=== PATIENT | male | born 1990 | race Caucasian/White ===

== ENCOUNTER 2017-05-09 06:23 | Emergency (ER) | payer OTHER ==
[~2017-05-09] VITALS: Ht 172.7 cm; Wt 87.1 kg
[~2017-05-09 06:23] MED LIST: ANAPROX DS550 MG PO; BACTRIM DS 8001 TA1 PO; BIAXIN500 MG PO; CLARITIN10 MG PO; CORTISPORIN 1%7.5 ML OP; DOXYCYCLINE HY100 M1 PO; EES400 MG PO; HYDROCODONE BIT1 T11 PO; MOTRIN600 MG PO; MOTRIN800 MG PO; NKHM; NORCO 5-325 TA1 EACH PO; TRAMADOL HCL50 MG PO; VIBRAMYCIN100 MG PO; ZITHROMAX Z PA250 MG PO; ZITHROMAX250 MG PO; ZYRTEC10 M2 PO
[2017-05-09] MEDS ORDERED: PROZAC20 MG PO (06:35)
[2017-05-09] MEDS ORDERED: PREDNISONE50 MG PO (07:57)
== END 2017-05-09 07:58 | disposition home or self-care (01) ==
LOC: ED 06:23
DX: J40 Bronchitis, not specified as acute or chronic (principal); Z88.0 Allergy status to penicillin; Z88.1 Allergy status to other antibiotic agents; Z79.899 Other long term (current) drug therapy

== ENCOUNTER 2017-10-26 09:45 | Emergency (ER) | payer OTHER ==
[~2017-10-26] VITALS: Ht 172.7 cm; Wt 92.1 kg
[~2017-10-26 09:45] MED LIST changes: +PREDNISONE50 MG PO; +PROZAC20 MG PO
[2017-10-26] MEDS ORDERED: NAPROSYN500 MG PO (09:51)
== END 2017-10-26 10:58 | disposition home or self-care (01) ==
LOC: ED 09:45
DX: S80.11XA Contusion of right lower leg, initial encounter (principal); R03.0 Elevated blood-pressure reading, without diagnosis of hypertension; Z88.0 Allergy status to penicillin; Z88.1 Allergy status to other antibiotic agents; Z79.899 Other long term (current) drug therapy; W21.00XA Struck by hit or thrown ball, unspecified type, initial encounter; Y93.89 Activity, other specified; Y92.89 Other specified places as the place of occurrence of the external cause; Y99.8 Other external cause status

== ENCOUNTER → 2018-09-13 | Outpatient (CLI) | payer OTHER ==
[~2018-09-13] MED LIST changes: +NAPROSYN500 MG PO
== END | disposition home or self-care (01) ==
LOC: RAD 12:08
DX: R07.9 Chest pain, unspecified (principal)

== ENCOUNTER → 2020-04-12 | Outpatient (CLI) | payer OTHER | END | disposition home or self-care (01) | LOC: COVID19 09:18 | PROVIDERS: ATTEND Family Medicine | DX: Z20.828 Contact with and (suspected) exposure to other viral communicable diseases (principal) ==

== ENCOUNTER 2020-09-05 05:18 | Emergency (ER) | payer OTHER ==
[~2020-09-05] VITALS: Ht 170.1 cm; Wt 90.7 kg
[2020-09-05] MEDS ORDERED: Bactroban Oint22 GM T (05:42)
[2020-09-05] MEDS ORDERED: CLINDAMYCIN HC300 MG PO (05:42)
== END 2020-09-05 05:56 | disposition home or self-care (01) ==
LOC: ED 05:18
DX: S91.311A Laceration without foreign body, right foot, initial encounter (principal); S91.301A Unspecified open wound, right foot, initial encounter; Z88.0 Allergy status to penicillin; Z88.8 Allergy status to other drugs, medicaments and biological substances; Z79.899 Other long term (current) drug therapy; X58.XXXA Exposure to other specified factors, initial encounter; Y93.89 Activity, other specified; Y92.89 Other specified places as the place of occurrence of the external cause; Y99.8 Other external cause status

== ENCOUNTER → 2021-09-10 | Outpatient (CLI) | payer OTHER ==
[~2021-09-10] MED LIST changes: +Bactroban Oint22 GM T; +CLINDAMYCIN HC300 MG PO
[2021-09-10 11:36] LABS: HEMATOCRIT 48.2 % (42.0-52.0); MEAN CELL VOLUME 86.1 fl (80.0-94.0); MEAN CORPUSCULAR HGB 28.9 pg (27.0-31.0); MEAN CORPUSCULAR HGB CONC 33.6 g/dl (33.0-37.0); RED BLOOD COUNT 5.6 10*6/uL (4.50-5.90); RED CELL DISTRI WIDTH 12.8 % (0-14.5); WHITE BLOOD COUNT 9.9 10*3/uL (4.8-10.8)
[2021-09-10 12:04] LABS: ALKALINE PHOSPHATASE 96 U/L (45-117); BUN 13 mg/dl (7-24); CHLORIDE 109 mmol/L (98-107); CHOLESTEROL 176 mg/dL (<200); CREATININE 0.92 mg/dL (0.70-1.30); LDL CHOLESTEROL 88 mg/dL (9-159); SGOT/AST 27 IU/L (3-35); SGPT/ALT 56 U/L (12-78); SODIUM 142 mmol/L (136-145); TOTAL PROTEIN 7.4 gm/dL (6.4-8.2); TRIGLYCERIDES 235 mg/dl (<150)
== END | disposition home or self-care (01) ==
LOC: LAB 10:50
PROVIDERS: ATTEND Family Medicine
DX: Z00.00 Encounter for general adult medical examination without abnormal findings (principal); F43.9 Reaction to severe stress, unspecified; F41.9 Anxiety disorder, unspecified

== ENCOUNTER 2022-06-07 17:41 | Emergency (ER) | payer OTHER ==
[~2022-06-07] VITALS: Ht 172.7 cm; Wt 90.7 kg
[2022-06-07 18:11] LABS: BASO # 0.1 10*3/uL (0.0-0.1); BASO % 0.5 % (0.0-1.0); EOS # 0.3 10*3/uL (0.0-0.4); EOS % 1.8 % (1.0-4.0); HEMATOCRIT 47.9 % (42.0-52.0); LYMPH # 1.5 10*3/uL (1.3-4.4); LYMPH % 9.5 % (27.0-41.0); MEAN CELL VOLUME 84.2 fl (80.0-94.0); MEAN CORPUSCULAR HGB 29.2 pg (27.0-31.0); MEAN CORPUSCULAR HGB CONC 34.7 g/dl (33.0-37.0); MEAN PLATELET VOLUME 9.7 fl (9.6-12.3); MONO # 1.4 10*3/uL (0.1-1.0); MONO % 8.8 % (3.0-9.0); NEUT # 12.3 10*3/uL (2.3-7.9); NEUT % 78.9 % (47.0-73.0); PLATELET COUNT AUTOMATED 300 10*3/uL (130-400); RED BLOOD COUNT 5.69 10*6/uL (4.50-5.90); RED CELL DISTRI WIDTH 12.5 % (0-14.5); WHITE BLOOD COUNT 15.6 10*3/uL (4.8-10.8)
[2022-06-07 18:28] LABS: ALKALINE PHOSPHATASE 100 U/L (46-116); BUN 10 mg/dl (9-23); CHLORIDE 102 mmol/L (98-107); SGPT/ALT 22 U/L (10-49); TOTAL PROTEIN 7.5 gm/dL (6.0-8.0)
[2022-06-07] MEDS ORDERED: LEVOFLOXACIN500 MG PO (20:42)
[2022-06-07] MEDS ORDERED: LEVOFLOXACIN750 M2 PO (20:44)
== END 2022-06-07 21:10 | disposition home or self-care (01) ==
LOC: ED 17:41
PROVIDERS: Nurse Practitioner Family
DX: J18.9 Pneumonia, unspecified organism (principal); I10 Essential (primary) hypertension; Z20.822 Contact with and (suspected) exposure to COVID-19; Z88.0 Allergy status to penicillin; Z88.8 Allergy status to other drugs, medicaments and biological substances; Z98.890 Other specified postprocedural states

== ENCOUNTER → 2022-06-19 | Outpatient (CLI) | payer OTHER ==
[~2022-06-19] MED LIST changes: +LEVOFLOXACIN500 MG PO; +LEVOFLOXACIN750 M2 PO
[2022-06-19 10:47] LABS: HEMATOCRIT 49.6 % (42.0-52.0); MEAN CELL VOLUME 85.8 fl (80.0-94.0); MEAN CORPUSCULAR HGB 28.9 pg (27.0-31.0); MEAN CORPUSCULAR HGB CONC 33.7 g/dl (33.0-37.0); MEAN PLATELET VOLUME 9.5 fl (9.6-12.3); RED BLOOD COUNT 5.78 10*6/uL (4.50-5.90); RED CELL DISTRI WIDTH 12.4 % (0-14.5); WHITE BLOOD COUNT 10.7 10*3/uL (4.8-10.8)
[2022-06-19 11:06] LABS: ALKALINE PHOSPHATASE 93 U/L (46-116); BUN 10 mg/dl (9-23); CHLORIDE 103 mmol/L (98-107); SGPT/ALT 34 U/L (10-49); TOTAL PROTEIN 7.8 gm/dL (6.0-8.0)
== END | disposition home or self-care (01) ==
LOC: LAB 10:11
PROVIDERS: ATTEND Family Medicine
DX: I10 Essential (primary) hypertension (principal); D72.829 Elevated white blood cell count, unspecified; R53.83 Other fatigue; R05.9 Cough, unspecified; J18.9 Pneumonia, unspecified organism

== ENCOUNTER 2023-06-07 15:15 | Emergency (ER) | payer OTHER ==
[~2023-06-07] VITALS: Ht 175.2 cm; Wt 90.7 kg
[2023-06-07] MEDS ORDERED: Tdap Vaccine 0.5 ML SYR (Adult Vaccine) IM ONE (15:35)
[2023-06-07] MEDS ORDERED: ceFAZolin sodium 1 GM VIAL IM ONE (15:50)
[2023-06-07] MEDS ORDERED: Vancomycin Hydrochloride 250 ML IV ONE (16:10)
[2023-06-07] MEDS ORDERED: MORPHINE Sulfate 2 MG/ML SYR IV ONE (16:25)
== END 2023-06-07 17:49 | disposition short-term general hospital (02) ==
LOC: ED 15:15
DX: S68.124A Partial traumatic metacarpophalangeal amputation of right ring finger, initial encounter (principal); I10 Essential (primary) hypertension; Z88.0 Allergy status to penicillin; Z88.8 Allergy status to other drugs, medicaments and biological substances; Z98.890 Other specified postprocedural states; X58.XXXA Exposure to other specified factors, initial encounter; Y93.89 Activity, other specified; Y92.89 Other specified places as the place of occurrence of the external cause; Y99.0 Civilian activity done for income or pay

== ENCOUNTER → 2023-08-08 | Outpatient (CLI) | payer OTHER ==
[2023-08-08 09:52] LABS: BASO % 0.5 % (0.0-1.0); EOS # 0.2 10*3/uL (0.0-0.4); HEMATOCRIT 45.1 % (42.0-52.0); LYMPH # 2.5 10*3/uL (1.3-4.4); LYMPH % 32.6 % (27.0-41.0); MEAN CELL VOLUME 85.1 fl (80.0-94.0); MEAN CORPUSCULAR HGB 28.7 pg (27.0-31.0); MEAN CORPUSCULAR HGB CONC 33.7 g/dl (33.0-37.0); MEAN PLATELET VOLUME 9.6 fl (9.6-12.3); MONO # 0.5 10*3/uL (0.1-1.0); MONO % 6.9 % (3.0-9.0); NEUT # 4.4 10*3/uL (2.3-7.9); NEUT % 56.5 % (47.0-73.0); PLATELET COUNT AUTOMATED 275 10*3/uL (130-400); RED CELL DISTRI WIDTH 12.9 % (0-14.5); WHITE BLOOD COUNT 7.8 10*3/uL (4.8-10.8)
[2023-08-08 10:23] LABS: ALKALINE PHOSPHATASE 82 U/L (46-116); BUN 12 mg/dl (9-23); CHLORIDE 109 mmol/L (98-107); CHOLESTEROL 150 mg/dL (<200); LDL CHOLESTEROL 93 mg/dL (9-159); SGPT/ALT 22 U/L (5-49); TOTAL PROTEIN 6.8 gm/dL (6.0-8.0); TRIGLYCERIDES 95 mg/dl (<150)
== END ==
LOC: LAB 09:37
PROVIDERS: ATTEND Nurse Practitioner Family
DX: Z13.228 Encounter for screening for other metabolic disorders (principal); Z13.0 Encounter for screening for diseases of the blood and blood-forming organs and certain disorders involving the immune mechanism; Z13.220 Encounter for screening for lipoid disorders; Z13.29 Encounter for screening for other suspected endocrine disorder; Z13.1 Encounter for screening for diabetes mellitus

== ENCOUNTER 2024-03-30 00:03 | Emergency (ER) | payer OTHER ==
[~2024-03-30] VITALS: Ht 172.7 cm; Wt 90.7 kg
[2024-03-30] MEDS ORDERED: SILVER NITRATE APPLICATOR 1 EACH APP T ONE (00:25)
[2024-03-30] MEDS ORDERED: CLINDAMYCIN HC300 MG PO (00:35)
[2024-03-30] MEDS ORDERED: Clindamycin Hydrochloride 150 MG CAP PO ONE (00:35)
[2024-03-30] MEDS ORDERED: DERMABOND 1 EA APPL T ONE (00:36)
== END 2024-03-30 00:58 | disposition home or self-care (01) ==
LOC: ED 00:03
DX: S61.200A Unspecified open wound of right index finger without damage to nail, initial encounter (principal); Z88.0 Allergy status to penicillin; Z88.1 Allergy status to other antibiotic agents; Z79.899 Other long term (current) drug therapy; W23.0XXA Caught, crushed, jammed, or pinched between moving objects, initial encounter; Y93.89 Activity, other specified; Y92.89 Other specified places as the place of occurrence of the external cause; Y99.8 Other external cause status

== ENCOUNTER 2024-11-23 17:14 | Emergency (ER) | payer OTHER ==
[~2024-11-23] VITALS: Wt 95.3 kg
[2024-11-23] MEDS ORDERED: LOSARTAN POTASS50 M1 PO (17:34)
[2024-11-23] MEDS ORDERED: Ondansetron Hydrochloride 4 MG/2 ML VIAL IV ONE (17:50)
[2024-11-23] MEDS ORDERED: SODIUM CHLORIDE 0.9% 1,000 ML IV ONE (17:50)
[2024-11-23] MEDS ORDERED: IOHEXOL 300 MG/ML 100 ML VIAL IV ONE (17:50)
[2024-11-23 18:17] LABS: BASO # 0.0 10*3/uL (0.0-0.1); BASO % 0.4 % (0.0-1.0); EOS # 0.2 10*3/uL (0.0-0.4); EOS % 1.6 % (1.0-4.0); MEAN CELL VOLUME 86.3 fl (80.0-94.0); MEAN CORPUSCULAR HGB 29.3 pg (27.0-31.0); MEAN PLATELET VOLUME 9.6 fl (9.6-12.3); MONO # 0.8 10*3/uL (0.1-1.0); MONO % 7.6 % (3.0-9.0); NEUT # 6.0 10*3/uL (2.3-7.9); NEUT % 61.0 % (47.0-73.0); NUCLEATED RED BLOOD CELL 0.0 % (0.0-0.0); NUCLEATED RED BLOOD CELL 0.0 10*3/uL (0.0-0.0); PLATELET COUNT AUTOMATED 333 10*3/uL (130-400); RED CELL DISTRI WIDTH 12.7 % (0-14.5)
[2024-11-23 18:20] LABS: BILIRUBIN Negative (Negative); BLOOD Negative (Negative); CLARITY Clear (Clear); COLOR Yellow (Yellow); KETONE Trace (Negative); LEUKO ESTERASE Negative (Negative); NITRITE Negative (Negative); PH 5.5 (4.5-8.0); SPECIFIC GRAVITY >= 1.030 (1.001-1.030); UROBILINOGEN 1.0 E.U./dl (0.0-1.0)
[2024-11-23 18:27] LABS: BACTERIA TRACE; CALCIUM OXALATE CRYSTALS 1+; RBC 0-2 rbc/hpf (0-2); WBC 0-2 wbc/hpf (0-5)
[2024-11-23 18:38] LABS: BUN 11 mg/dl (9-23); SGPT/ALT 27 U/L (5-49)
[2024-11-23] MEDS ORDERED: NOREPINEPHRINE BITARTRATE/D5W 250 ML IV SCH (18:40)
[2024-11-23] MEDS ORDERED: OMEPRAZOLE40 MG PO (20:10)
== END 2024-11-23 20:16 | disposition home or self-care (01) ==
LOC: ED 17:14
PROVIDERS: Nurse Practitioner Family
DX: K82.8 Other specified diseases of gallbladder (principal); K29.70 Gastritis, unspecified, without bleeding; Z88.0 Allergy status to penicillin; Z88.1 Allergy status to other antibiotic agents; Z79.899 Other long term (current) drug therapy; Z96.22 Myringotomy tube(s) status

== ENCOUNTER → 2024-12-31 | Outpatient (CLI) | payer OTHER ==
[~2024-12-31] MED LIST changes: +LOSARTAN POTASS50 M1 PO; +OMEPRAZOLE40 MG PO
== END | disposition home or self-care (01) ==
LOC: US 12-22 10:30
PROVIDERS: ATTEND Nurse Practitioner Family
DX: K76.0 Fatty (change of) liver, not elsewhere classified (principal); R10.11 Right upper quadrant pain

== ENCOUNTER 2025-01-04 21:04 | Emergency (ER) | payer OTHER ==
[2025-01-04] MEDS ORDERED: SODIUM CHLORIDE 0.9% 1,000 ML IV ONE (22:00)
[2025-01-04 22:25] LABS: BASO # 0.0 10*3/uL (0.0-0.1); BASO % 0.4 % (0.0-1.0); EOS # 0.2 10*3/uL (0.0-0.4); EOS % 2.2 % (1.0-4.0); MEAN CELL VOLUME 86.2 fl (80.0-94.0); MEAN CORPUSCULAR HGB 29.7 pg (27.0-31.0); MEAN PLATELET VOLUME 9.5 fl (9.6-12.3); MONO # 0.7 10*3/uL (0.1-1.0); MONO % 8.6 % (3.0-9.0); NEUT # 4.4 10*3/uL (2.3-7.9); NEUT % 54.8 % (47.0-73.0); NUCLEATED RED BLOOD CELL 0.0 % (0.0-0.0); NUCLEATED RED BLOOD CELL 0.0 10*3/uL (0.0-0.0); PLATELET COUNT AUTOMATED 315 10*3/uL (130-400); RED CELL DISTRI WIDTH 12.7 % (0-14.5)
[2025-01-04 22:40] LABS: BILIRUBIN Negative (Negative); BLOOD Negative (Negative); CLARITY Clear (Clear); COLOR Yellow (Yellow); KETONE Negative (Negative); LEUKO ESTERASE Negative (Negative); NITRITE Negative (Negative); PH 5.5 (4.5-8.0); SPECIFIC GRAVITY 1.015 (1.001-1.030); UROBILINOGEN 0.2 E.U./dl (0.0-1.0)
[2025-01-04 22:44] LABS: BUN 13 mg/dl (9-23)
[2025-01-04 22:57] LABS: RBC 0-2 rbc/hpf (0-2); WBC 0-2 wbc/hpf (0-5)
[2025-01-04] MEDS ORDERED: Ondansetron4 MG PO (23:53)
== END 2025-01-05 00:06 | disposition home or self-care (01) ==
LOC: ED 21:04
PROVIDERS: Internal Medicine
DX: R10.9 Unspecified abdominal pain (principal); M54.9 Dorsalgia, unspecified; R11.10 Vomiting, unspecified; Z88.0 Allergy status to penicillin; Z88.1 Allergy status to other antibiotic agents; Z79.899 Other long term (current) drug therapy; Z96.22 Myringotomy tube(s) status; Z87.442 Personal history of urinary calculi